=== PATIENT | female | born 1965 | race Caucasian/White ===

== ENCOUNTER 2019-05-21 14:39 | Emergency (ER) | payer SELFPAY ==
[~2019-05-21] VITALS: Ht 160 cm; Wt 62.6 kg
[2019-05-21 17:39] VITALS: BP 99/58
== END 2019-05-21 17:39 | disposition home or self-care (01) ==
LOC: ED 14:39
DX: S39.92XA Unspecified injury of lower back, initial encounter (principal); Z98.51 Tubal ligation status; Z98.890 Other specified postprocedural states; W22.8XXA Striking against or struck by other objects, initial encounter; Y93.89 Activity, other specified; Y92.89 Other specified places as the place of occurrence of the external cause; Y99.8 Other external cause status